=== PATIENT | male | born 1940 | race Caucasian/White ===

== ENCOUNTER 2020-04-24 16:02 | Observation (INO) ==
[2020-04-24] MEDS ORDERED: INFLUENZA VIRUS VACCINE 0.5 ML SYRINGE IM ONE (18:36)
[2020-04-24] MEDS ORDERED: DEXTROSE 50% 25 GM/50 ML VIAL IV PRN (20:23)
[2020-04-24] MEDS ORDERED: ONDANSETRON 4 MG/2 ML VIAL IV PRN (20:23)
[2020-04-24] MEDS ORDERED: MORPHINE 4 MG/1 ML VIAL IV PRN (20:23)
[2020-04-24] MEDS ORDERED: ZALEPLON 5 MG CAPSULE PO PRN (20:23)
[2020-04-24] MEDS ORDERED: GLUCAGON 1 MG VIAL IM PRN (20:23)
[2020-04-24] MEDS ORDERED: diphenhydrAMINE CAP 25 MG CAPSULE PO PRN (20:23)
[2020-04-24] MEDS ORDERED: hydrALAZINE 20 MG/1 ML VIAL IV PRN (20:23)
[2020-04-24] MEDS ORDERED: guaiFENesin/DM ER 600-30 MG TABLET PO PRN (20:23)
[2020-04-24] MEDS ORDERED: ACETAMINOPHEN 325 MG TABLET PO PRN (20:23)
[2020-04-24 20:59] LABS: ABG Base Excess 2.4 MMOL/L (-2.5-2.5); ABG HCO3 26.5 MMOL/L (20-26); ABG PCO2 54.6 MM HG (35-48); ABG PH 7.343 (7.35-7.45); ABG TCO2 25.8 MMOL/L (23-27); Allen Test Positive
[2020-04-24] MEDS: SODIUM CHLORIDE 0.45% 1,000 ML IV SCH (21:11)
[2020-04-24] MEDS: cefTRIAXone 1,000 MG in SYRINGE 1 EACH IV SCH (21:11)
[2020-04-24] MEDS: ASCORBIC ACID 500 MG TABLET PO SCH (21:11)
[2020-04-24 21:22] LABS: Basophils % 0.4 % (0.0-0.8); Hematocrit 42.8 VOL% (42.0-52.0); Hemoglobin 13.8 GM/DL (14.0-18.0); Immature Granulocytes % 0.4 %; Immature Granulocytes Absolute 0.01 #; Lymphocytes # 0.5 10*3/uL (1.4-4.0); Lymphocytes % 19.9 % (21.2-54.2); Mean Corpuscular HGB Conc 32.2 GM/DL (32-36); Mean Corpuscular Volume 101.4 FL (87-102); Monocytes % 2.1 % (1.7-12.7); Neutrophils % 77.2 % (38.7-73.9); Platelet Count 153 T/CUMM (130-400); Red Blood Count 4.22 MC/CUMM (3.8-5.5); Red Cell Distribution Width 13.1 % (9.3-17.3); White Blood Count 2.4 T/CUMM (4-12)
[2020-04-24 22:01] LABS: Alanine Aminotransferase 34 U/L (16-61); Albumin 3.4 G/DL (3.4-5.0); Alkaline Phosphatase 69 U/L (45-117); Aspartate Amino Transferase 26 U/L (0-37); Bilirubin,Total < 0.39 MG/DL (0.2-1.0); Blood Urea Nitrogen 23 MG/DL (7-18); Calcium 8.5 MG/DL (8.5-10.1); Estimated Glom Filtration Rate 39 ML/MIN; Glucose 265 MG/DL (74-106); Osmolality,Calculated 287.7 MOS/KG (273-304); Total Protein 6.9 G/DL (6.4-8.3)
[2020-04-24] MEDS ORDERED: ALUMINUM/MAGNES/SIMETH MAX STR 30 ML UDCUP PO PRN (22:31)
[2020-04-24 23:25] LABS: Bilirubin,Urine Negative (Negative); Blood, Urine Negative (Negative); Glucose,Urine (UA) >=500 mg/dL (Negative); Hyaline Casts,Urine 4 /LPF (0-3); Ketones,Urine Negative (Negative); Mucus,Urine Occasional /LPF (Occasional); Nitrite,Urine Negative (Negative); Protein,Urine Negative; RBC,Urine 2 /HPF (0-4); Squamous Epithelial Cell,Urine Occasional /HPF (0-10); Urine Appearance CLEAR (Clear); Urine Color Yellow (Yellow); Urine Specific Gravity 1.015 (1.001-1.035); Urine Urobilinogen < 2.0 EU/DL (0.2-1.0); WBC,Urine <1 /HPF (0-6)
[2020-04-25 05:07] LABS: Hematocrit 39.9 VOL% (42.0-52.0); Hemoglobin 13.3 GM/DL (14.0-18.0); Immature Granulocytes % 0.4 %; Immature Granulocytes Absolute 0.01 #; Lymphocytes # 0.7 10*3/uL (1.4-4.0); Lymphocytes % 25.5 % (21.2-54.2); Mean Corpuscular HGB Conc 33.3 GM/DL (32-36); Mean Platelet Volume 10.3 FL (9.6-12.0); Monocytes % 3.6 % (1.7-12.7); Neutrophils % 70.5 % (38.7-73.9); Platelet Count 152 T/CUMM (130-400); Red Blood Count 4.03 MC/CUMM (3.8-5.5); Red Cell Distribution Width 12.8 % (9.3-17.3); White Blood Count 2.7 T/CUMM (4-12)
[2020-04-25 05:27] LABS: Bilirubin,Total 0.4 MG/DL (0.2-1.0); Calcium 8.5 MG/DL (8.5-10.1); Osmolality,Calculated 288.4 MOS/KG (273-304); Risk Ratio 2.62; Total Protein 6.4 G/DL (6.4-8.3)
[2020-04-25] MEDS: ENOXAPARIN 40 MG/0.4 ML SYRINGE SUBCUT SCH (08:36)
[2020-04-25] MEDS: ASCORBIC ACID 500 MG TABLET PO SCH ×2 (08:37→21:46)
[2020-04-25] MEDS: PANTOPRAZOLE 40 MG TABLET PO SCH (08:37)
[2020-04-25] MEDS: INSULIN REGULAR 100 UNIT/ML SUBCUT SCH ×4 (08:38→21:45)
[2020-04-25] MEDS: CETIRIZINE 10 MG TABLET PO SCH (08:39)
[2020-04-25] MEDS ORDERED: ZINC SULFATE 220 MG CAPSULE PO SCH (09:00)
[2020-04-25] MEDS ORDERED: DEXAMETHASONE INJ 10 MG in SODIUM CHLORIDE 0.9% 50 ML IV SCH (09:00)
[2020-04-25] MEDS: DEXAMETHASONE 10 MG/1 ML VIAL IV SCH (10:13)
[2020-04-25] MEDS: MONTELUKAST 10 MG TABLET PO SCH (10:13)
[2020-04-25] MEDS ORDERED: POLYETHYLENE GLYCOL POWDER 17 GM PACK PO PRN (11:02)
[2020-04-25] MEDS: SODIUM CHLORIDE 0.45% 1,000 ML IV SCH (11:54)
[2020-04-25] MEDS ORDERED: TEMAZEPAM 15 MG CAPSULE PO SCH (21:00)
[2020-04-25] MEDS: cefTRIAXone 1,000 MG in SYRINGE 1 EACH IV SCH (21:46)
[2020-04-25] MEDS: carvediloL 3.125 MG TABLET PO SCH (21:46)
[2020-04-26] MEDS: SODIUM CHLORIDE 0.45% 1,000 ML IV SCH ×3 (01:18→14:01)
[2020-04-26 04:28] LABS: ABG Base Excess 4.9 MMOL/L (-2.5-2.5); ABG HCO3 28.8 MMOL/L (20-26); ABG Oxygen Saturation 96.2 % (95-100); ABG PCO2 56.9 MM HG (35-48); ABG PH 7.359 (7.35-7.45); ABG PO2 85.9 MM HG (80-95); ABG TCO2 28.3 MMOL/L (23-27); Allen Test Positive
[2020-04-26 05:23] LABS: Basophils % 0.1 % (0.0-0.8); Hematocrit 38.2 VOL% (42.0-52.0); Hemoglobin 12.6 GM/DL (14.0-18.0); Immature Granulocytes % 0.6 %; Immature Granulocytes Absolute 0.04 #; Lymphocytes # 1.3 10*3/uL (1.4-4.0); Lymphocytes % 19.3 % (21.2-54.2); Mean Corpuscular Volume 99.2 FL (87-102); Mean Platelet Volume 10.5 FL (9.6-12.0); Platelet Count 157 T/CUMM (130-400); Red Blood Count 3.85 MC/CUMM (3.8-5.5); Red Cell Distribution Width 12.6 % (9.3-17.3); White Blood Count 6.7 T/CUMM (4-12)
[2020-04-26 05:29] LABS: PT Patient Result 10.8 SECS (9.8-11.9)
[2020-04-26 05:52] LABS: Alanine Aminotransferase 25 U/L (16-61); Albumin 3.1 G/DL (3.4-5.0); Alkaline Phosphatase 57 U/L (45-117); Aspartate Amino Transferase 16 U/L (0-37); Bilirubin,Total < 0.39 MG/DL (0.2-1.0); Blood Urea Nitrogen 29 MG/DL (7-18); Calcium 8.6 MG/DL (8.5-10.1); Estimated Glom Filtration Rate 56 ML/MIN; Ferritin 34.5 ng/ml (26-388); Glucose 164 MG/DL (74-106); Osmolality,Calculated 284.7 MOS/KG (273-304); Total Protein 6.5 G/DL (6.4-8.3); Troponin I < 0.015 NG/ML (0.00-0.045)
[2020-04-26 06:34] LABS: Sedimentation Rate-Westergren 5 MM/HR (0-20)
[2020-04-26] MEDS ORDERED: EZETIMIBE 10 MG TABLET PO SCH (09:00)
[2020-04-26] MEDS ORDERED: FUROSEMIDE 20 MG TABLET PO SCH (09:00)
[2020-04-26] MEDS ORDERED: TAMSULOSIN 0.4 MG CAPSULE PO SCH (09:00)
[2020-04-26] MEDS: INSULIN REGULAR 100 UNIT/ML SUBCUT SCH ×2 (09:55→13:16)
[2020-04-26] MEDS: ENOXAPARIN 40 MG/0.4 ML SYRINGE SUBCUT SCH (09:56)
[2020-04-26] MEDS: ASCORBIC ACID 500 MG TABLET PO SCH (09:57)
[2020-04-26] MEDS: carvediloL 3.125 MG TABLET PO SCH (09:57)
[2020-04-26] MEDS: PANTOPRAZOLE 40 MG TABLET PO SCH (09:57)
[2020-04-26] MEDS: MONTELUKAST 10 MG TABLET PO SCH (09:58)
[2020-04-26] MEDS: CETIRIZINE 10 MG TABLET PO SCH (09:58)
[2020-04-26] MEDS: DEXAMETHASONE 10 MG/1 ML VIAL IV SCH (11:10)
[2020-04-26] MEDS ORDERED: diphenhydrAMINE 50 MG/1 ML VIAL IV ONE (11:26)
[2020-04-26 11:33] VITALS: BP 168/71
[2020-04-27] MEDS ORDERED: AZITHROMYCIN 250 MG TABLET PO SCH (21:00)
== END 2020-04-26 14:20 | disposition home or self-care (01) ==
LOC: SUATTDRO 18:01 → INTOOBSV 18:01 → N.2E 18:01
PROVIDERS: ADMIT Internal Medicine; ATTEND Hospitalist

== ENCOUNTER 2020-12-11 11:45 | Inpatient (IN) ==
[2020-12-11 12:16] LABS: Basophils % 0.2 % (0.0-0.8); Eosinophils # 0.2 10*3/uL (0.0-0.87); Eosinophils % 1.3 % (0.00-10.9); Hematocrit 36.3 VOL% (42.0-52.0); Hemoglobin 11.6 GM/DL (14.0-18.0); Immature Granulocytes % 0.4 %; Immature Granulocytes Absolute 0.06 #; Lymphocytes # 1.5 10*3/uL (1.4-4.0); Lymphocytes % 11.1 % (21.2-54.2); Mean Corpuscular Volume 100.3 FL (87-102); Mean Platelet Volume 9.8 FL (9.6-12.0); Monocytes % 7.1 % (1.7-12.7); Neutrophils % 79.9 % (38.7-73.9); Platelet Count 137 T/CUMM (130-400); Red Blood Count 3.62 MC/CUMM (3.8-5.5); Red Cell Distribution Width 13.7 % (9.3-17.3); White Blood Count 13.6 T/CUMM (4-12)
[2020-12-11 12:40] LABS: Albumin 3.1 G/DL (3.4-5.0); Bilirubin,Total 0.9 MG/DL (0.2-1.0); Calcium 8.2 MG/DL (8.5-10.1); Osmolality,Calculated 287.5 MOS/KG (273-304); Potassium 4.7 MMOL/L (3.5-5.1); Total Protein 6.1 G/DL (6.4-8.2)
[2020-12-11] MEDS ORDERED: ALBUTEROL 2.5 MG/3 ML NEB RESP TX STA (13:34)
[2020-12-11] MEDS ORDERED: AZITHROMYCIN INJ 500 MG in SODIUM CHLORIDE 0.9% 250 ML IV STA (14:23)
[2020-12-11] MEDS ORDERED: methylPREDNISolone SOD SUC 125 MG/2 ML VIAL IV STA (14:23)
[2020-12-11] MEDS ORDERED: DEXTROSE 50% 25 GM/50 ML VIAL IV PRN (14:24)
[2020-12-11] MEDS ORDERED: GLUCAGON 1 MG VIAL IM PRN (14:24)
[2020-12-11] MEDS ORDERED: NICOTINE 21 MG/24 HR PATCH TRANSDERM PRN (14:24)
[2020-12-11] MEDS: ENOXAPARIN 30 MG/0.3 ML SYRINGE SUBCUT SCH (14:50)
[2020-12-11] MEDS: INSULIN LISPRO 100 UNIT/ML SUBCUT SCH ×2 (18:23→21:05)
[2020-12-11] MEDS: ALBUTEROL/IPRATROPIUM 3 ML NEB RESP TX SCH (19:16)
[2020-12-11] MEDS: methylPREDNISolone SOD SUC 40 MG/1 ML VIAL IV SCH (21:05)
[2020-12-12] MEDS: ALBUTEROL/IPRATROPIUM 3 ML NEB RESP TX SCH ×4 (00:30→19:48)
[2020-12-12] MEDS: methylPREDNISolone SOD SUC 40 MG/1 ML VIAL IV SCH ×3 (05:14→21:37)
[2020-12-12 05:55] LABS: Hematocrit 36.5 VOL% (42.0-52.0); Hemoglobin 11.2 GM/DL (14.0-18.0); Immature Granulocytes % 0.8 %; Immature Granulocytes Absolute 0.07 #; Lymphocytes # 0.5 10*3/uL (1.4-4.0); Lymphocytes % 5.8 % (21.2-54.2); Mean Corpuscular HGB Conc 30.7 GM/DL (32-36); Mean Corpuscular Volume 103.7 FL (87-102); Monocytes % 1.1 % (1.7-12.7); Neutrophils % 92.3 % (38.7-73.9); Platelet Count 138 T/CUMM (130-400); Red Blood Count 3.52 MC/CUMM (3.8-5.5); Red Cell Distribution Width 13.4 % (9.3-17.3); White Blood Count 9.2 T/CUMM (4-12)
[2020-12-12 06:10] LABS: Calcium 8.7 MG/DL (8.5-10.1); Osmolality,Calculated 303.8 MOS/KG (273-304); Potassium 4.7 MMOL/L (3.5-5.1)
[2020-12-12 06:31] LABS: Band Neutrophils 3 % (0-10); Lymphocytes 5 % (20-55); Platelet Estimate Decreased; Segmented Neutrophils 92 % (50-85); Total Cells Counted 100
[2020-12-12] MEDS: INSULIN LISPRO 100 UNIT/ML SUBCUT SCH ×4 (09:57→21:43)
[2020-12-12] MEDS: AZITHROMYCIN 250 MG TABLET PO SCH (09:57)
[2020-12-12] MEDS: PANTOPRAZOLE 40 MG TABLET PO SCH (09:57)
[2020-12-12] MEDS ORDERED: FUROSEMIDE 20 MG TABLET PO PRN (12:34)
[2020-12-12] MEDS ORDERED: clonazePAM 0.5 MG TABLET PO PRN (12:34)
[2020-12-12] MEDS ORDERED: POLYETHYLENE GLYCOL POWDER 17 GM PACK PO PRN (12:34)
[2020-12-12] MEDS ORDERED: ALBUTEROL 2.5 MG/3 ML NEB RESP TX PRN (12:34)
[2020-12-12] MEDS: [UNRECOGNIZED DRUG - MIXTURE] INH SCH (13:30)
[2020-12-12] MEDS: ASPIRIN 325 MG TABLET PO SCH (14:44)
[2020-12-12] MEDS: OLMESARTAN 20 MG TABLET PO SCH (14:45)
[2020-12-12] MEDS: carvediloL 3.125 MG TABLET PO SCH ×2 (14:45→21:37)
[2020-12-12] MEDS: MAGNESIUM OXIDE 400 MG TABLET PO SCH (14:45)
[2020-12-12] MEDS: hydroCHLOROthiazide 25 MG TABLET PO SCH (14:45)
[2020-12-12] MEDS: ESCITALOPRAM 10 MG TABLET PO SCH (14:45)
[2020-12-12] MEDS: ENOXAPARIN 30 MG/0.3 ML SYRINGE SUBCUT SCH (14:46)
[2020-12-12] MEDS ORDERED: SIMVASTATIN 40 MG TABLET PO SCH (21:00)
[2020-12-12] MEDS ORDERED: TEMAZEPAM 15 MG CAPSULE PO SCH (21:00)
[2020-12-12] MEDS ORDERED: EZETIMIBE 10 MG TABLET PO SCH (21:00)
[2020-12-12] MEDS ORDERED: TAMSULOSIN 0.4 MG CAPSULE PO SCH (21:00)
[2020-12-13] MEDS: ALBUTEROL/IPRATROPIUM 3 ML NEB RESP TX SCH ×2 (01:21→07:08)
[2020-12-13] MEDS: methylPREDNISolone SOD SUC 40 MG/1 ML VIAL IV SCH ×2 (03:52→13:58)
[2020-12-13] MEDS ORDERED: ASCORBIC ACID 500 MG TABLET PO SCH (09:00)
[2020-12-13] MEDS ORDERED: NON-FORMULARY MEDICATION (Fluticasone-Umeclidin-Vilanter [Trelegy Ellipta] 200-62.5-25 mcg INH SCH (09:00)
[2020-12-13] MEDS: INSULIN LISPRO 100 UNIT/ML SUBCUT SCH ×2 (09:42→13:59)
[2020-12-13] MEDS: ASPIRIN 325 MG TABLET PO SCH (09:43)
[2020-12-13] MEDS: OLMESARTAN 20 MG TABLET PO SCH (09:43)
[2020-12-13] MEDS: hydroCHLOROthiazide 25 MG TABLET PO SCH (09:43)
[2020-12-13] MEDS: PANTOPRAZOLE 40 MG TABLET PO SCH (09:44)
[2020-12-13] MEDS: carvediloL 3.125 MG TABLET PO SCH (09:44)
[2020-12-13] MEDS: ESCITALOPRAM 10 MG TABLET PO SCH (09:44)
[2020-12-13] MEDS: MAGNESIUM OXIDE 400 MG TABLET PO SCH (09:44)
[2020-12-13] MEDS: AZITHROMYCIN 250 MG TABLET PO SCH (09:44)
[2020-12-13] MEDS: ENOXAPARIN 30 MG/0.3 ML SYRINGE SUBCUT SCH (13:58)
[2020-12-13 15:36] VITALS: BP 143/47
[2020-12-13] MEDS: [UNRECOGNIZED DRUG - MIXTURE] INH SCH (15:53)
== END 2020-12-13 16:06 | disposition home or self-care (01) | DRG 192 ==
LOC: N.ED 11:45 → SUATTDRO 14:24 → N.EDINP 14:24 → N.3E 15:41
PROVIDERS: ADMIT Family Medicine; ATTEND Hospitalist

== ENCOUNTER 2020-12-14 23:07 | Inpatient (IN) ==
[2020-12-15 01:52] LABS: ABG Base Excess 3.5 MMOL/L (-2.5-2.5); ABG HCO3 27.6 MMOL/L (20-26); ABG Oxygen Saturation 99.7 % (95-100); ABG TCO2 35.5 MMOL/L (23-27)
[2020-12-15 01:54] LABS: ABG PH 7.117 (7.35-7.45)
[2020-12-15] MEDS ORDERED: methylPREDNISolone SOD SUC 125 MG/2 ML VIAL ONE (02:01)
[2020-12-15] MEDS ORDERED: methylPREDNISolone SOD SUC 125 MG/2 ML VIAL IV ONE (02:03)
[2020-12-15] MEDS ORDERED: ALBUTEROL 2.5 MG/3 ML NEB RESP TX PRN (02:10)
[2020-12-15] MEDS ORDERED: ROCURONIUM 100 MG/10 ML VIAL IV ONE ×2 (02:24→02:52)
[2020-12-15] MEDS ORDERED: ETOMIDATE 20 MG/10 ML VIAL IV ONE ×2 (02:24→02:51)
[2020-12-15] MEDS ORDERED: SODIUM BICARBONATE 50 MEQ/50 ML VIAL IV ONE ×3 (02:49→04:13)
[2020-12-15] MEDS ORDERED: MIDAZOLAM 100 MG in SODIUM CHLORIDE 0.9% 80 ML IV PRN (03:07)
[2020-12-15] MEDS ORDERED: ACETAMINOPHEN 325 MG TABLET PO PRN (03:07)
[2020-12-15] MEDS ORDERED: guaiFENesin/DM ER 600-30 MG TABLET PO PRN (03:07)
[2020-12-15] MEDS ORDERED: ONDANSETRON 4 MG/2 ML VIAL IV PRN (03:07)
[2020-12-15] MEDS ORDERED: diphenhydrAMINE CAP 25 MG CAPSULE PO PRN (03:07)
[2020-12-15] MEDS ORDERED: SODIUM CHLORIDE 0.9% 1,000 ML IV ONE (04:03)
[2020-12-15] MEDS ORDERED: SODIUM BICARBONATE 50 MEQ/50 ML SYRINGE IV ONE (04:12)
[2020-12-15] MEDS ORDERED: PHENYLEPHRINE DRIP 40 MG/250 ML PREMIX IV ONE (04:19)
[2020-12-15] MEDS ORDERED: PHENYLEPHRINE DRIP 40 MG/250 ML PREMIX IV PRN (04:19)
[2020-12-15 04:40] LABS: ABG Base Excess 7.7 MMOL/L (-2.5-2.5); ABG HCO3 31.6 MMOL/L (20-26); ABG PCO2 67.4 MM HG (35-48); ABG PH 7.333 (7.35-7.45); ABG TCO2 32.8 MMOL/L (23-27); Allen Test Positive; Pt O2 Delivery Device Ventilator
[2020-12-15 06:52] LABS: Basophils % 0.1 % (0.0-0.8); Hemoglobin 10.6 GM/DL (14.0-18.0); Immature Granulocytes % 0.3 %; Immature Granulocytes Absolute 0.03 #; Lymphocytes # 0.6 10*3/uL (1.4-4.0); Lymphocytes % 5.5 % (21.2-54.2); Mean Corpuscular HGB Conc 31.2 GM/DL (32-36); Mean Corpuscular Volume 102.7 FL (87-102); Mean Platelet Volume 10.2 FL (9.6-12.0); Monocytes % 6.4 % (1.7-12.7); Neutrophils % 87.7 % (38.7-73.9); Platelet Count 156 T/CUMM (130-400); Red Blood Count 3.31 MC/CUMM (3.8-5.5); Red Cell Distribution Width 13.6 % (9.3-17.3); White Blood Count 10.5 T/CUMM (4-12)
[2020-12-15 07:15] LABS: Albumin 2.7 G/DL (3.4-5.0); Band Neutrophils 7 % (0-10); Bilirubin,Total 0.8 MG/DL (0.2-1.0); Hypochromasia 1+; Lymphocytes 4 % (20-55); Potassium 5.4 MMOL/L (3.5-5.1); Segmented Neutrophils 84 % (50-85); Total Cells Counted 100; Total Protein 6.3 G/DL (6.4-8.2)
[2020-12-15 07:16] LABS: Microcytosis 1+; Platelet Estimate Adequate
[2020-12-15] MEDS: ALBUTEROL/IPRATROPIUM 3 ML NEB RESP TX SCH ×3 (07:17→19:08)
[2020-12-15] MEDS: PANTOPRAZOLE 40 MG VIAL IV SCH (08:44)
[2020-12-15 09:11] LABS: Bilirubin,Urine Negative (Negative); Blood, Urine Large mg/dL (Negative); Glucose,Urine (UA) 150 mg/dL (Negative); Hyaline Casts,Urine 5 /LPF (0-3); Ketones,Urine Negative (Negative); Mucus,Urine Few /LPF (Occasional); Nitrite,Urine Negative (Negative); Protein,Urine 30 MG/DL; RBC,Urine 177 /HPF (0-4); Urine Appearance Slightly Hazy (Clear); Urine Color Yellow (Yellow); Urine Specific Gravity 1.018 (1.001-1.035); Urine Urobilinogen < 2.0 EU/DL (0.2-1.0)
[2020-12-15] MEDS: INSULIN LISPRO 100 UNIT/ML SUBCUT SCH ×2 (12:04→18:37)
[2020-12-15] MEDS: LACTATED RINGERS 1,000 ML IV SCH ×2 (13:01→23:16)
[2020-12-15] MEDS: NICOTINE 21 MG/24 HR PATCH TRANSDERM PRN (13:47)
[2020-12-15] MEDS: methylPREDNISolone SOD SUC 40 MG/1 ML VIAL IV SCH (13:47)
[2020-12-15] MEDS: cefTRIAXone 1,000 MG in SODIUM CHLORIDE 0.9% 100 ML IV SCH (22:34)
[2020-12-16] MEDS: INSULIN LISPRO 100 UNIT/ML SUBCUT SCH ×4 (00:20→18:18)
[2020-12-16] MEDS: ALBUTEROL/IPRATROPIUM 3 ML NEB RESP TX SCH ×4 (00:53→20:33)
[2020-12-16] MEDS: methylPREDNISolone SOD SUC 40 MG/1 ML VIAL IV SCH ×2 (02:13→14:18)
[2020-12-16 04:16] LABS: ABG Base Excess 10.7 MMOL/L (-2.5-2.5); ABG HCO3 36.9 MMOL/L (20-26); ABG Oxygen Saturation 98.9 % (95-100); ABG PCO2 58.2 MM HG (35-48); ABG PO2 187.2 MM HG (80-95); ABG TCO2 38.7 MMOL/L (23-27)
[2020-12-16 04:20] LABS: Hematocrit 32.7 VOL% (42.0-52.0); Hemoglobin 10.2 GM/DL (14.0-18.0); Immature Granulocytes % 0.3 %; Immature Granulocytes Absolute 0.02 #; Lymphocytes # 0.7 10*3/uL (1.4-4.0); Lymphocytes % 11.3 % (21.2-54.2); Mean Corpuscular HGB Conc 31.2 GM/DL (32-36); Mean Corpuscular Volume 101.2 FL (87-102); Monocytes % 7.2 % (1.7-12.7); Neutrophils % 81.2 % (38.7-73.9); Platelet Count 123 T/CUMM (130-400); Red Blood Count 3.23 MC/CUMM (3.8-5.5); Red Cell Distribution Width 13.3 % (9.3-17.3)
[2020-12-16 04:32] LABS: Calcium 9.3 MG/DL (8.5-10.1); Osmolality,Calculated 302.8 MOS/KG (273-304); Potassium 4.2 MMOL/L (3.5-5.1)
[2020-12-16] MEDS: hydrALAZINE 20 MG/1 ML VIAL IV PRN ×2 (04:46→09:39)
[2020-12-16 05:59] LABS: Band Neutrophils 3 % (0-10); Lymphocytes 11 % (20-55); Segmented Neutrophils 80 % (50-85); Total Cells Counted 100
[2020-12-16 06:03] LABS: Hypochromasia 1+; Microcytosis 2+
[2020-12-16 06:04] LABS: Platelet Estimate Normal
[2020-12-16] MEDS: PANTOPRAZOLE 40 MG VIAL IV SCH (09:14)
[2020-12-16] MEDS: amLODIPine 10 MG TABLET PO SCH (11:28)
[2020-12-16] MEDS: LACTATED RINGERS 1,000 ML IV SCH (12:47)
[2020-12-16] MEDS: NICOTINE 21 MG/24 HR PATCH TRANSDERM PRN (14:43)
[2020-12-16] MEDS: cefTRIAXone 1,000 MG in SODIUM CHLORIDE 0.9% 100 ML IV SCH (22:59)
[2020-12-17] MEDS: INSULIN LISPRO 100 UNIT/ML SUBCUT SCH ×4 (00:02→18:14)
[2020-12-17] MEDS: ALBUTEROL/IPRATROPIUM 3 ML NEB RESP TX SCH ×4 (01:51→19:56)
[2020-12-17] MEDS: methylPREDNISolone SOD SUC 40 MG/1 ML VIAL IV SCH ×2 (01:54→14:34)
[2020-12-17 04:33] LABS: Allen Test Positive; Pt O2 Delivery Device Ventilator
[2020-12-17 04:36] LABS: ABG Base Excess 4.8 MMOL/L (-2.5-2.5); ABG HCO3 31.9 MMOL/L (20-26); ABG Oxygen Saturation 87.6 % (95-100); ABG PCO2 57.1 MM HG (35-48); ABG PH 7.365 (7.35-7.45); ABG PO2 56.1 MM HG (80-95); ABG TCO2 33.7 MMOL/L (23-27)
[2020-12-17 05:02] LABS: ABG Base Excess 6.1 MMOL/L (-2.5-2.5); ABG Oxygen Saturation 99.3 % (95-100); ABG PCO2 54.4 MM HG (35-48); ABG PH 7.385 (7.35-7.45); ABG TCO2 29.4 MMOL/L (23-27)
[2020-12-17 05:06] LABS: Calcium 9.4 MG/DL (8.5-10.1); Osmolality,Calculated 303.7 MOS/KG (273-304); Potassium 4.3 MMOL/L (3.5-5.1)
[2020-12-17] MEDS ORDERED: DEXMEDETOMIDINE 200 MCG in SODIUM CHLORIDE 0.9% 48 ML IV PRN (06:00)
[2020-12-17] MEDS: MORPHINE 4 MG/1 ML VIAL IV PRN ×2 (08:01→12:32)
[2020-12-17] MEDS: PANTOPRAZOLE 40 MG VIAL IV SCH (08:02)
[2020-12-17] MEDS: amLODIPine 10 MG TABLET PO SCH (08:02)
[2020-12-17] MEDS: DEXMEDETOMIDINE 400 MCG in SODIUM CHLORIDE 0.9% 96 ML IV PRN ×2 (09:57→17:25)
[2020-12-17] MEDS: hydrALAZINE 20 MG/1 ML VIAL IV PRN ×2 (10:09→21:52)
[2020-12-17] MEDS: FONDAPARINUX 2.5 MG/0.5 ML SYRINGE SUBCUT SCH (20:35)
[2020-12-17] MEDS: cefTRIAXone 1,000 MG in SODIUM CHLORIDE 0.9% 100 ML IV SCH (22:13)
[2020-12-18] MEDS: INSULIN LISPRO 100 UNIT/ML SUBCUT SCH ×4 (00:11→21:03)
[2020-12-18] MEDS: DEXMEDETOMIDINE 400 MCG in SODIUM CHLORIDE 0.9% 96 ML IV PRN ×2 (00:39→08:15)
[2020-12-18] MEDS: ALBUTEROL/IPRATROPIUM 3 ML NEB RESP TX SCH ×4 (01:13→19:34)
[2020-12-18] MEDS: methylPREDNISolone SOD SUC 40 MG/1 ML VIAL IV SCH ×2 (01:54→14:56)
[2020-12-18 03:58] LABS: Hematocrit 37.5 VOL% (42.0-52.0); Hemoglobin 11.8 GM/DL (14.0-18.0); Immature Granulocytes % 0.7 %; Immature Granulocytes Absolute 0.06 #; Lymphocytes # 0.2 10*3/uL (1.4-4.0); Lymphocytes % 2.7 % (21.2-54.2); Mean Corpuscular HGB Conc 31.5 GM/DL (32-36); Mean Corpuscular Volume 99.7 FL (87-102); Mean Platelet Volume 9.5 FL (9.6-12.0); Monocytes % 4.6 % (1.7-12.7); Platelet Count 163 T/CUMM (130-400); Red Blood Count 3.76 MC/CUMM (3.8-5.5); Red Cell Distribution Width 13.3 % (9.3-17.3)
[2020-12-18 04:11] LABS: Calcium 9.6 MG/DL (8.5-10.1); Osmolality,Calculated 293.3 MOS/KG (273-304)
[2020-12-18 04:18] LABS: Hypochromasia Slight; Lymphocytes 3 % (20-55); Microcytosis Slight; Platelet Estimate Adequate; Segmented Neutrophils 94 % (50-85); Total Cells Counted 100
[2020-12-18 05:14] LABS: ABG Base Excess 1.9 MMOL/L (-2.5-2.5); ABG HCO3 26.1 MMOL/L (20-26); ABG Oxygen Saturation 99.1 % (95-100); ABG PCO2 47.4 MM HG (35-48); ABG PH 7.374 (7.35-7.45); ABG TCO2 24.6 MMOL/L (23-27); Allen Test Positive; Pt O2 Delivery Device Ventilator
[2020-12-18] MEDS: hydrALAZINE 20 MG/1 ML VIAL IV PRN ×2 (06:07→23:18)
[2020-12-18] MEDS: FONDAPARINUX 2.5 MG/0.5 ML SYRINGE SUBCUT SCH ×2 (08:14→20:41)
[2020-12-18] MEDS: amLODIPine 10 MG TABLET PO SCH (08:15)
[2020-12-18] MEDS: PANTOPRAZOLE 40 MG VIAL IV SCH (08:15)
[2020-12-18] MEDS: cefTRIAXone 1,000 MG in SODIUM CHLORIDE 0.9% 100 ML IV SCH (23:41)
[2020-12-19] MEDS: ALBUTEROL/IPRATROPIUM 3 ML NEB RESP TX SCH ×4 (01:43→20:10)
[2020-12-19] MEDS: methylPREDNISolone SOD SUC 40 MG/1 ML VIAL IV SCH (03:00)
[2020-12-19 03:35] LABS: ABG Base Excess 1.6 MMOL/L (-2.5-2.5); ABG HCO3 27.1 MMOL/L (20-26); ABG Oxygen Saturation 98.7 % (95-100); ABG PCO2 46.5 MM HG (35-48); ABG PH 7.384 (7.35-7.45); ABG PO2 179.3 MM HG (80-95); ABG TCO2 28.6 MMOL/L (23-27)
[2020-12-19 03:52] LABS: Basophils % 0.3 % (0.0-0.8); Eosinophils % 0.1 % (0.00-10.9); Hematocrit 34.9 VOL% (42.0-52.0); Hemoglobin 11.3 GM/DL (14.0-18.0); Immature Granulocytes % 1.1 %; Immature Granulocytes Absolute 0.11 #; Lymphocytes # 0.7 10*3/uL (1.4-4.0); Lymphocytes % 7.7 % (21.2-54.2); Mean Corpuscular HGB Conc 32.4 GM/DL (32-36); Mean Corpuscular Volume 98.9 FL (87-102); Mean Platelet Volume 9.8 FL (9.6-12.0); Monocytes % 3.6 % (1.7-12.7); NRBC # 0.02 10*3/uL; Neutrophils % 87.2 % (38.7-73.9); Platelet Count 186 T/CUMM (130-400); Red Blood Count 3.53 MC/CUMM (3.8-5.5); Red Cell Distribution Width 13.6 % (9.3-17.3); White Blood Count 9.7 T/CUMM (4-12)
[2020-12-19 04:05] LABS: Calcium 9.2 MG/DL (8.5-10.1); Osmolality,Calculated 288.5 MOS/KG (273-304); Potassium 4.5 MMOL/L (3.5-5.1)
[2020-12-19] MEDS: PANTOPRAZOLE 40 MG VIAL IV SCH (08:04)
[2020-12-19] MEDS: FONDAPARINUX 2.5 MG/0.5 ML SYRINGE SUBCUT SCH ×2 (08:04→20:49)
[2020-12-19] MEDS: amLODIPine 10 MG TABLET PO SCH (08:04)
[2020-12-19] MEDS: INSULIN LISPRO 100 UNIT/ML SUBCUT SCH ×4 (08:41→20:50)
[2020-12-19] MEDS ORDERED: MAGNESIUM SULF RIDER 4 GM/100 ML PREMIX IV PRN (10:11)
[2020-12-19] MEDS ORDERED: MAGNESIUM SULF RIDER 2 GM/50 ML PREMIX IV PRN (10:11)
[2020-12-19] MEDS ORDERED: POLYETHYLENE GLYCOL POWDER 17 GM PACK PO PRN (18:18)
[2020-12-19] MEDS ORDERED: TAMSULOSIN 0.4 MG CAPSULE PO SCH (21:00)
[2020-12-19] MEDS ORDERED: TEMAZEPAM 7.5 MG CAPSULE PO PRN (22:10)
[2020-12-19] MEDS: cefTRIAXone 1,000 MG in SODIUM CHLORIDE 0.9% 100 ML IV SCH (22:25)
[2020-12-20] MEDS: ALBUTEROL/IPRATROPIUM 3 ML NEB RESP TX SCH ×3 (01:12→13:28)
[2020-12-20 04:48] LABS: Basophils # 0.1 10*3/uL (0.0-0.2); Basophils % 0.7 % (0.0-0.8); Eosinophils # 0.2 10*3/uL (0.0-0.87); Eosinophils % 1.7 % (0.00-10.9); Hematocrit 38.1 VOL% (42.0-52.0); Immature Granulocytes % 2.8 %; Immature Granulocytes Absolute 0.26 #; Lymphocytes # 1.2 10*3/uL (1.4-4.0); Lymphocytes % 13.6 % (21.2-54.2); Mean Corpuscular HGB Conc 31.5 GM/DL (32-36); Mean Corpuscular Volume 101.3 FL (87-102); Mean Platelet Volume 9.8 FL (9.6-12.0); Monocytes % 5.9 % (1.7-12.7); Neutrophils % 75.3 % (38.7-73.9); Platelet Count 172 T/CUMM (130-400); Red Blood Count 3.76 MC/CUMM (3.8-5.5); Red Cell Distribution Width 13.7 % (9.3-17.3); White Blood Count 9.2 T/CUMM (4-12)
[2020-12-20 05:07] LABS: Calcium 8.8 MG/DL (8.5-10.1); Osmolality,Calculated 287.8 MOS/KG (273-304); Potassium 4.2 MMOL/L (3.5-5.1)
[2020-12-20] MEDS ORDERED: MAGNESIUM OXIDE 400 MG TABLET PO SCH (09:00)
[2020-12-20] MEDS ORDERED: EZETIMIBE 10 MG TABLET PO SCH (09:00)
[2020-12-20] MEDS ORDERED: FLUTICASONE UMECLIDIN VILANTER INH SCH (09:00)
[2020-12-20] MEDS ORDERED: ASCORBIC ACID 500 MG TABLET PO SCH (09:00)
[2020-12-20] MEDS ORDERED: ESCITALOPRAM 10 MG TABLET PO SCH (09:00)
[2020-12-20] MEDS ORDERED: ASPIRIN 325 MG TABLET PO SCH (09:00)
[2020-12-20] MEDS ORDERED: predniSONE 20 MG TABLET PO SCH (09:00)
[2020-12-20] MEDS: NICOTINE 21 MG/24 HR PATCH TRANSDERM PRN (09:40)
[2020-12-20] MEDS: amLODIPine 10 MG TABLET PO SCH (09:41)
[2020-12-20] MEDS: PANTOPRAZOLE 40 MG VIAL IV SCH (09:42)
[2020-12-20] MEDS: INSULIN LISPRO 100 UNIT/ML SUBCUT SCH ×2 (09:42→11:45)
[2020-12-20] MEDS: FONDAPARINUX 2.5 MG/0.5 ML SYRINGE SUBCUT SCH (09:43)
[2020-12-20 11:44] VITALS: BP 122/55
== END 2020-12-20 15:55 | DRG 208 ==
LOC: SUATTDRO 12-15 01:22 → N.ICU 12-15 01:22 → N.4E 12-19 18:08
PROVIDERS: ADMIT Internal Medicine; ATTEND Internal Medicine

== ENCOUNTER 2021-03-09 21:12 | Observation (INO) ==
[2021-03-09] MEDS ORDERED: diphenhydrAMINE CAP 25 MG CAPSULE PO PRN (23:08)
[2021-03-09] MEDS ORDERED: guaiFENesin/DM ER 600-30 MG TABLET PO PRN (23:08)
[2021-03-09] MEDS ORDERED: BISACODYL 5 MG TABLET PO PRN (23:08)
[2021-03-09] MEDS ORDERED: NICOTINE 21 MG/24 HR PATCH TRANSDERM PRN (23:08)
[2021-03-09] MEDS ORDERED: GLUCAGON 1 MG VIAL IM PRN ×2 (23:08)
[2021-03-09] MEDS ORDERED: ACETAMINOPHEN 325 MG TABLET PO PRN (23:08)
[2021-03-09] MEDS ORDERED: DEXTROSE 50% 25 GM/50 ML VIAL IV PRN ×2 (23:08)
[2021-03-09] MEDS ORDERED: hydrALAZINE 20 MG/1 ML VIAL IV PRN (23:08)
[2021-03-09] MEDS ORDERED: ZALEPLON 5 MG CAPSULE PO PRN (23:08)
[2021-03-09] MEDS ORDERED: ONDANSETRON 4 MG/2 ML VIAL IV PRN (23:08)
[2021-03-09 23:24] LABS: ABG Base Excess 1.5 MMOL/L (-2.5-2.5); ABG HCO3 25.8 MMOL/L (20-26); ABG Oxygen Saturation 96.3 % (95-100); ABG PCO2 44.7 MM HG (35-48); ABG PH 7.388 (7.35-7.45); ABG PO2 85.9 MM HG (80-95); ABG TCO2 24.2 MMOL/L (23-27)
[2021-03-09 23:44] LABS: Basophils % 0.5 % (0.0-0.8); Eosinophils # 0.2 10*3/uL (0.0-0.87); Eosinophils % 2.5 % (0.00-10.9); Hematocrit 35.4 VOL% (42.0-52.0); Hemoglobin 10.6 GM/DL (14.0-18.0); Immature Granulocytes % 0.4 %; Immature Granulocytes Absolute 0.03 #; Lymphocytes % 40.6 % (21.2-54.2); Mean Corpuscular HGB Conc 29.9 GM/DL (32-36); Mean Corpuscular Volume 97.5 FL (87-102); Mean Platelet Volume 9.5 FL (9.6-12.0); Monocytes % 8.6 % (1.7-12.7); Neutrophils % 47.4 % (38.7-73.9); Platelet Count 206 T/CUMM (130-400); Red Blood Count 3.63 MC/CUMM (3.8-5.5); Red Cell Distribution Width 14.6 % (9.3-17.3); White Blood Count 7.3 T/CUMM (4-12)
[2021-03-10 00:11] LABS: Calcium 8.9 MG/DL (8.5-10.1); Osmolality,Calculated 288.8 MOS/KG (273-304); Potassium 4.9 MMOL/L (3.5-5.1)
[2021-03-10] MEDS: ALBUTEROL/IPRATROPIUM 3 ML NEB RESP TX SCH ×3 (01:36→14:30)
[2021-03-10] MEDS: INSULIN LISPRO 100 UNIT/ML SUBCUT SCH ×2 (08:02→11:50)
[2021-03-10] MEDS ORDERED: ASPIRIN 325 MG TABLET PO SCH (09:00)
[2021-03-10] MEDS ORDERED: EZETIMIBE 10 MG TABLET PO SCH (09:00)
[2021-03-10] MEDS ORDERED: PANTOPRAZOLE 40 MG TABLET PO SCH (09:00)
[2021-03-10] MEDS ORDERED: carvediloL 3.125 MG TABLET PO SCH (09:00)
[2021-03-10] MEDS ORDERED: APIXABAN 5 MG TABLET PO SCH (11:37)
[2021-03-10] MEDS ORDERED: ASCORBIC ACID 500 MG TABLET PO SCH (11:37)
[2021-03-10] MEDS ORDERED: MAGNESIUM SULF RIDER 2 GM/50 ML PREMIX IV ONE (11:51)
[2021-03-10 11:59] VITALS: BP 132/55
[2021-03-10] MEDS ORDERED: SIMVASTATIN 40 MG TABLET PO SCH (21:00)
[2021-03-10] MEDS ORDERED: TAMSULOSIN 0.4 MG CAPSULE PO SCH (21:00)
== END 2021-03-10 14:43 | disposition home or self-care (01) ==
LOC: N.TELEN → SUATTDRO 22:45
PROVIDERS: ADMIT Internal Medicine; ATTEND Internal Medicine

== ENCOUNTER 2021-06-30 21:42 | Inpatient (IN) ==
[2021-06-30 22:30] LABS: Basophils % 0.7 % (0.0-0.8); Eosinophils # 0.1 10*3/uL (0.0-0.87); Eosinophils % 1.8 % (0.00-10.9); Hematocrit 32.8 VOL% (42.0-52.0); Hemoglobin 10.2 GM/DL (14.0-18.0); Immature Granulocytes % 0.7 %; Immature Granulocytes Absolute 0.04 #; Lymphocytes # 1.6 10*3/uL (1.4-4.0); Lymphocytes % 27.6 % (21.2-54.2); Mean Corpuscular HGB Conc 31.1 GM/DL (32-36); Mean Corpuscular Volume 94.5 FL (87-102); Mean Platelet Volume 9.9 FL (9.6-12.0); Monocytes % 17.1 % (1.7-12.7); Neutrophils % 52.1 % (38.7-73.9); Platelet Count 215 T/CUMM (130-400); Red Blood Count 3.47 MC/CUMM (3.8-5.5); Red Cell Distribution Width 15.4 % (9.3-17.3); White Blood Count 5.7 T/CUMM (4-12)
[2021-06-30 22:37] LABS: Albumin 3.3 G/DL (3.4-5.0); Bilirubin,Total 0.4 MG/DL (0.20-1.00); Osmolality,Calculated 286.3 MOS/KG (273-304); Potassium 4.3 MMOL/L (3.5-5.1); Total Protein 6.6 G/DL (6.4-8.2)
[2021-06-30] MEDS ORDERED: methylPREDNISolone SOD SUC 125 MG/2 ML VIAL IV STA (22:45)
[2021-06-30] MEDS ORDERED: ALBUTEROL/IPRATROPIUM 3 ML NEB RESP TX STA (22:45)
[2021-06-30] MEDS ORDERED: LEVOFLOXACIN INJ 750 MG/150 ML PREMIX IV STA (22:46)
[2021-06-30] MEDS ORDERED: ACETAMINOPHEN 325 MG TABLET PO PRN (22:55)
[2021-06-30] MEDS ORDERED: ONDANSETRON 4 MG/2 ML VIAL IV PRN (22:55)
[2021-06-30] MEDS ORDERED: DEXTROSE 50% 25 GM/50 ML VIAL IV PRN (22:55)
[2021-06-30] MEDS ORDERED: MORPHINE 2 MG/1 ML SYRINGE IV PRN (22:55)
[2021-06-30] MEDS ORDERED: NICOTINE 21 MG/24 HR PATCH TRANSDERM PRN (22:55)
[2021-06-30] MEDS ORDERED: hydrALAZINE 20 MG/1 ML VIAL IV PRN (22:55)
[2021-06-30] MEDS ORDERED: diphenhydrAMINE CAP 25 MG CAPSULE PO PRN (22:55)
[2021-06-30] MEDS ORDERED: ZALEPLON 5 MG CAPSULE PO PRN (22:55)
[2021-06-30] MEDS ORDERED: GLUCAGON 1 MG VIAL IM PRN ×2 (22:55)
[2021-06-30] MEDS ORDERED: DEXTROSE 50% 25 GM/50 ML SYRINGE IV PRN (22:55)
[2021-06-30] MEDS ORDERED: SODIUM CHLORIDE 0.9% 1,000 ML IV SCH (23:00)
[2021-06-30 23:32] LABS: ABG Base Excess 4.4 MMOL/L (-2.5-2.5); ABG HCO3 29.1 MMOL/L (20-26); ABG Oxygen Saturation 96.3 % (95-100); ABG PCO2 44.3 MM HG (35-48); ABG PH 7.436 (7.35-7.45); ABG PO2 84.5 MM HG (80-95); ABG TCO2 30.5 MMOL/L (23-27)
[2021-07-01] MEDS ORDERED: FUROSEMIDE 20 MG TABLET PO PRN (00:29)
[2021-07-01] MEDS: guaiFENesin/DM ER 600-30 MG TABLET PO PRN ×3 (02:23→23:27)
[2021-07-01] MEDS: ALBUTEROL/IPRATROPIUM 3 ML NEB RESP TX SCH ×4 (03:03→19:10)
[2021-07-01 03:34] LABS: Atypical Lymphocytes Few; Eosinophils 3 % (0-10); Lymphocytes 29 % (20-55); Reactive Lymphocytes 1+; Segmented Neutrophils 55 % (50-85); Total Cells Counted 100
[2021-07-01 03:37] LABS: Hypochromasia 1+; Platelet Estimate Normal
[2021-07-01 06:10] LABS: Basophils % 0.6 % (0.0-0.8); Eosinophils % 0.3 % (0.00-10.9); Hemoglobin 9.6 GM/DL (14.0-18.0); Immature Granulocytes % 0.6 %; Immature Granulocytes Absolute 0.02 #; Lymphocytes # 0.5 10*3/uL (1.4-4.0); Lymphocytes % 14.8 % (21.2-54.2); Mean Corpuscular Volume 95.1 FL (87-102); Monocytes % 1.7 % (1.7-12.7); Platelet Count 194 T/CUMM (130-400); Red Blood Count 3.26 MC/CUMM (3.8-5.5); Red Cell Distribution Width 15.2 % (9.3-17.3); White Blood Count 3.5 T/CUMM (4-12)
[2021-07-01 06:32] LABS: Bilirubin,Total 0.8 MG/DL (0.20-1.00); Osmolality,Calculated 285.7 MOS/KG (273-304); Potassium 4.8 MMOL/L (3.5-5.1); Total Protein 6.6 G/DL (6.4-8.2)
[2021-07-01] MEDS: EZETIMIBE 10 MG TABLET PO SCH (08:51)
[2021-07-01] MEDS: methylPREDNISolone SOD SUC 125 MG/2 ML VIAL IV SCH ×3 (08:51→23:20)
[2021-07-01] MEDS: PANTOPRAZOLE 40 MG TABLET PO SCH (08:51)
[2021-07-01] MEDS: BISACODYL 5 MG TABLET PO SCH (08:52)
[2021-07-01] MEDS ORDERED: AZITHROMYCIN INJ 500 MG in SODIUM CHLORIDE 0.9% 250 ML IV SCH (09:00)
[2021-07-01] MEDS ORDERED: HEPARIN 5,000 UNIT/1 ML VIAL SUBCUT SCH (09:00)
[2021-07-01] MEDS: INSULIN LISPRO 100 UNIT/ML SUBCUT SCH ×4 (09:26→23:19)
[2021-07-01] MEDS: cefTRIAXone 1,000 MG in SODIUM CHLORIDE 0.9% 100 ML IV SCH (11:06)
[2021-07-01] MEDS: carvediloL 3.125 MG TABLET PO SCH ×2 (12:24→23:19)
[2021-07-01] MEDS: APIXABAN 5 MG TABLET PO SCH ×2 (12:24→23:19)
[2021-07-01] MEDS ORDERED: SIMVASTATIN 40 MG TABLET PO SCH (21:00)
[2021-07-01] MEDS ORDERED: TAMSULOSIN 0.4 MG CAPSULE PO SCH (21:00)
[2021-07-02] MEDS: ALBUTEROL/IPRATROPIUM 3 ML NEB RESP TX SCH ×3 (01:24→12:08)
[2021-07-02 06:11] LABS: Hematocrit 30.3 VOL% (42.0-52.0); Hemoglobin 9.5 GM/DL (14.0-18.0); Immature Granulocytes % 0.6 %; Immature Granulocytes Absolute 0.04 #; Lymphocytes # 0.7 10*3/uL (1.4-4.0); Lymphocytes % 11.6 % (21.2-54.2); Mean Corpuscular HGB Conc 31.4 GM/DL (32-36); Mean Corpuscular Volume 94.1 FL (87-102); Monocytes % 3.7 % (1.7-12.7); Neutrophils % 84.1 % (38.7-73.9); Platelet Count 215 T/CUMM (130-400); Red Blood Count 3.22 MC/CUMM (3.8-5.5); Red Cell Distribution Width 14.9 % (9.3-17.3); White Blood Count 6.2 T/CUMM (4-12)
[2021-07-02 06:22] LABS: Calcium 8.7 MG/DL (8.5-10.1); Osmolality,Calculated 284.7 MOS/KG (273-304); Potassium 4.4 MMOL/L (3.5-5.1)
[2021-07-02] MEDS ORDERED: MAGNESIUM SULF RIDER 2 GM/50 ML PREMIX IV ONE (07:55)
[2021-07-02] MEDS: APIXABAN 5 MG TABLET PO SCH (09:08)
[2021-07-02] MEDS: INSULIN LISPRO 100 UNIT/ML SUBCUT SCH ×2 (09:08→13:04)
[2021-07-02] MEDS: BISACODYL 5 MG TABLET PO SCH (09:08)
[2021-07-02] MEDS: methylPREDNISolone SOD SUC 125 MG/2 ML VIAL IV SCH (09:09)
[2021-07-02] MEDS: EZETIMIBE 10 MG TABLET PO SCH (09:09)
[2021-07-02] MEDS: cefTRIAXone 1,000 MG in SODIUM CHLORIDE 0.9% 100 ML IV SCH (09:09)
[2021-07-02] MEDS: carvediloL 3.125 MG TABLET PO SCH (09:09)
[2021-07-02] MEDS: PANTOPRAZOLE 40 MG TABLET PO SCH (10:29)
[2021-07-02 12:12] VITALS: BP 152/64
== END 2021-07-02 13:30 | disposition home or self-care (01) | DRG 190 ==
LOC: N.ED 21:42 → N.EDINP 22:55 → N.3E 07-01 00:29
PROVIDERS: ADMIT Internal Medicine; ATTEND Internal Medicine